=== PATIENT | male | born 1960 | race Caucasian/White ===

== ENCOUNTER 2018-08-20 12:15 | Emergency (ER) | payer OTHER ==
[~2018-08-20] VITALS: Ht 175.3 cm; Wt 99.8 kg
[2018-08-20 12:34] VITALS: Ht 175.3 cm; Wt 99.8 kg
[2018-08-20 12:44] LABS: BASOPHIL % 0.4 % (0-2); RED CELL DISTRIBUTION WIDTH 14.1 % (11.5-14.5)
[2018-08-20 12:46] LABS: PLATELET COUNT 127 x10^3mcL (130-400)
[2018-08-20 13:00] LABS: CALCIUM 8.8 mg/dL (8.5-10.1); CARBON DIOXIDE 24.8 mmol/L (21-32); CHLORIDE SERUM 101 mmol/L (98-107); CREATININE SERUM 1.2 mg/dL (0.7-1.3); GFR1 > 60 mL/min; GLUCOSE SERUM 94 mg/dL (74-106); POTASSIUM SERUM 3.6 mmol/L (3.5-5.1); SODIUM SERUM 137 mmol/L (136-145)
[2018-08-20 13:02] LABS: ALBUMIN 3.8 g/dL (3.4-5.0); ALKALINE PHOSPHATASE 66 U/L (46-116); ALT/SGPT 55 U/L (16-63); AST/SGOT 40 U/L (15-37); TOTAL PROTEIN, SERUM 8.1 g/dL (6.4-8.2)
[2018-08-20 15:20] VITALS: BP 116/77
== END 2018-08-20 15:20 | disposition other institution (70) ==
LOC: ED 12:15 → EDBD 12:15 → ED 12:15
PROVIDERS: Emergency Medicine
DX: M12.9 Arthropathy, unspecified (principal)
CPT/HCPCS: 36415; 82962; Q0092